=== PATIENT | female | born 1960 | race Caucasian/White ===

== ENCOUNTER 2019-11-12 07:06 | Day surgery (SDC) | payer OTHER ==
[~2019-11-12 07:06] MED LIST: COZAAR50 MG; NEURONTIN300 MG PO; PRILOSEC10 MG PO
== END 2019-11-12 16:52 | disposition home or self-care (01) ==
LOC: CIR.AMB 07:06
PROVIDERS: ATTEND Obstetrics & Gynecology
DX: N72 Inflammatory disease of cervix uteri (principal); Z20.828 Contact with and (suspected) exposure to other viral communicable diseases